=== PATIENT | female | born 1985 | race Native Hawaiian/Other Pacific Islander ===

== ENCOUNTER 2017-12-20 16:33 | Emergency (ER) | payer OTHER ==
[~2017-12-20] VITALS: Ht 160 cm; Wt 72.6 kg
[2017-12-20] MEDS ORDERED: GABA300 PO (17:10)
[2017-12-20] MEDS ORDERED: BENADRYL25 MG PO (17:10)
[2017-12-20] MEDS ORDERED: VENLAFAXINE HCL75 MG PO (17:10)
[2017-12-20] MEDS ORDERED: ALBU90OI INH (17:10)
[2017-12-20] MEDS ORDERED: HALO5 PO (17:10)
[2017-12-20] MEDS ORDERED: Mobic15 MG PO (17:10)
[2017-12-20] MEDS ORDERED: LEVE500 PO (17:10)
[2017-12-20] MEDS ORDERED: DOXE50 PO (17:10)
[2017-12-20] MEDS ORDERED: Estradiol1 MG PO (17:15)
== END 2017-12-20 17:26 | disposition home or self-care (01) ==
LOC: ER 16:33
DX: G40.909 Epilepsy, unspecified, not intractable, without status epilepticus (principal); F41.9 Anxiety disorder, unspecified; F32.9 Major depressive disorder, single episode, unspecified; Z76.0 Encounter for issue of repeat prescription; Z79.899 Other long term (current) drug therapy; F31.9 Bipolar disorder, unspecified; J45.909 Unspecified asthma, uncomplicated; F17.200 Nicotine dependence, unspecified, uncomplicated
CPT/HCPCS: 99281

== ENCOUNTER 2018-01-05 22:01 | Emergency (ER) | payer OTHER ==
[~2018-01-05] VITALS: Ht 160 cm; Wt 83.9 kg
[~2018-01-05 22:01] MED LIST: ALBU90OI INH; BENADRYL25 MG PO; CHLO25 PO; DOXE50 PO; Estradiol1 MG PO; GABA300 PO; GABA600 PO; HALO5 PO; INVEGA SUS234 MG/1.5 IM; LEVE500 PO; LEVO-T112 MCG PO; Mobic15 MG PO; VENL75ER PO; VENLAFAXINE HCL75 MG PO
== END 2018-01-05 23:07 | disposition home or self-care (01) ==
LOC: ER 22:01
DX: S60.512A Abrasion of left hand, initial encounter (principal); F31.9 Bipolar disorder, unspecified; F41.9 Anxiety disorder, unspecified; F17.210 Nicotine dependence, cigarettes, uncomplicated; Z79.899 Other long term (current) drug therapy; Y04.2XXA Assault by strike against or bumped into by another person, initial encounter
CPT/HCPCS: 73130; 99284-25; Q0177

== ENCOUNTER 2018-01-08 08:45 | Emergency (ER) | payer OTHER ==
[~2018-01-08] VITALS: Ht 160 cm; Wt 81.7 kg
[2018-01-08] MEDS ORDERED: DIAZ2 PO (11:04)
== END 2018-01-08 11:13 | disposition home or self-care (01) ==
LOC: ER 08:45
DX: F41.9 Anxiety disorder, unspecified (principal); S00.83XA Contusion of other part of head, initial encounter; S30.0XXA Contusion of lower back and pelvis, initial encounter; F31.9 Bipolar disorder, unspecified; Z79.899 Other long term (current) drug therapy; W50.0XXA Accidental hit or strike by another person, initial encounter
CPT/HCPCS: 99283

== ENCOUNTER 2018-01-17 20:44 | Emergency (ER) | payer OTHER ==
[~2018-01-17] VITALS: Ht 160 cm; Wt 81.7 kg
[~2018-01-17 20:44] MED LIST changes: +DIAZ2 PO
[2018-01-17] MEDS ORDERED: HALO.5 (21:10)
[2018-01-17] MEDS ORDERED: MELO7.5 PO (21:10)
[2018-01-17] MEDS ORDERED: HYDPAM25 PO (21:10)
== END 2018-01-18 01:00 | disposition home or self-care (01) ==
LOC: ER 20:44
DX: R44.3 Hallucinations, unspecified (principal); R45.1 Restlessness and agitation; F41.9 Anxiety disorder, unspecified; F17.210 Nicotine dependence, cigarettes, uncomplicated; Z79.899 Other long term (current) drug therapy
CPT/HCPCS: 99284; Q3014